=== PATIENT | female | born 2000 | race Caucasian/White ===

== ENCOUNTER 2021-12-23 13:07 | Inpatient (IN) | payer MEDICAID ==
[2021-12-23] MEDS ORDERED: Sodium Chloride 0.9% 1,000 ML IV ONE ×2 (13:34→14:22)
[2021-12-23] MEDS ORDERED: Insulin Regular, Human 100 Units/ML 3 ML Vial IV ONE (13:45)
[2021-12-23] MEDS ORDERED: Metoclopramide 10 MG/2 ML SDV IVPUSH ONE ×2 (13:52→15:55)
[2021-12-23] MEDS ORDERED: Sodium Chloride 0.45% with KCl 1,000 ML IV SCH (15:00)
[2021-12-23] MEDS ORDERED: Morphine 2 MG/ML SYRINGE IVPUSH PRN (15:21)
[2021-12-23] MEDS ORDERED: Ondansetron 8 MG in Sodium Chloride 0.9% 50 ML IV PRN (15:21)
[2021-12-23 15:23] LABS: HEMOGLOBIN A1C 8.5 %
[2021-12-23] MEDS: NS + KCl 20mEq/L 1,000 ML IV SCH ×2 (15:35→21:03)
[2021-12-23] MEDS: Heparin Sodium 5,000 Units/ML Vial SUBCUT SCH (17:00)
[2021-12-23] MEDS ORDERED: Ondansetron 4 MG/2 ML SDV IVPUSH PRN (20:11)
[2021-12-23] MEDS: LORazepam 2 MG/ML SDV IV PRN (22:35)
[2021-12-24] MEDS: NS + KCl 20mEq/L 1,000 ML IV SCH (01:06)
[2021-12-24] MEDS: D5 1/2 NS w/ 20 mEq/L KCl 1,000 ML IV SCH ×3 (02:13→11:42)
[2021-12-24] MEDS: Ondansetron 4 MG/2 ML SDV IVPUSH PRN ×4 (03:06→22:23)
[2021-12-24] MEDS: LORazepam 2 MG/ML SDV IV PRN ×5 (04:09→23:04)
[2021-12-24] MEDS ORDERED: Phosphorus #1 250 MG Tab PO ONE (06:33)
[2021-12-24] MEDS: Heparin Sodium 5,000 Units/ML Vial SUBCUT SCH ×4 (08:04→23:13)
[2021-12-24] MEDS: Insulin Lispro 100 Unit/ML 3 ML KwikPen SUBCUT SCH ×4 (08:59→20:21)
[2021-12-24] MEDS ORDERED: Sodium Chloride 0.9% 1,000 ML IV SCH (09:00)
[2021-12-24] MEDS: Potassium Chloride 10 MEQ in Premix Bag 1 BAG IV SCH ×2 (09:38→10:54)
[2021-12-24] MEDS ORDERED: Sodium Chloride 0.45% 1,000 ML IV SCH (10:45)
[2021-12-24] MEDS: Metoclopramide 5 MG Tab PO PRN (15:22)
[2021-12-24] MEDS: Insulin Glargine,Human Rec. Analog 100 Units/ML 3 ML Pen SUBCUT SCH (20:16)
[2021-12-25] MEDS: Metoclopramide 5 MG Tab PO PRN ×3 (00:54→21:46)
[2021-12-25] MEDS: Ondansetron 4 MG/2 ML SDV IVPUSH PRN ×3 (04:31→20:10)
[2021-12-25] MEDS ORDERED: Sodium Chloride 0.9% 1,000 ML IV ONE (08:10)
[2021-12-25] MEDS: Heparin Sodium 5,000 Units/ML Vial SUBCUT SCH ×2 (08:44→17:08)
[2021-12-25] MEDS: LORazepam 2 MG/ML SDV IV PRN ×2 (08:44→17:29)
[2021-12-25] MEDS: Insulin Lispro 100 Unit/ML 3 ML KwikPen SUBCUT SCH ×4 (08:46→20:19)
[2021-12-25] MEDS: Insulin Glargine,Human Rec. Analog 100 Units/ML 3 ML Pen SUBCUT SCH ×2 (08:48→20:15)
[2021-12-25] MEDS: Sodium Chloride 0.9% 1,000 ML IV SCH ×2 (10:07→20:21)
[2021-12-26] MEDS: Heparin Sodium 5,000 Units/ML Vial SUBCUT SCH ×3 (00:48→16:33)
[2021-12-26] MEDS: LORazepam 2 MG/ML SDV IV PRN (04:59)
[2021-12-26] MEDS: Ondansetron 4 MG/2 ML SDV IVPUSH PRN (05:15)
[2021-12-26] MEDS ORDERED: Scopolamine 1.5 MG Transdermal Patch TOP ONE (07:39)
[2021-12-26] MEDS ORDERED: Sodium Chloride 0.9% 1,000 ML IV SCH (08:30)
[2021-12-26] MEDS ORDERED: Ondansetron 8 MG in Sodium Chloride 0.9% 50 ML IV PRN (08:30)
[2021-12-26] MEDS ORDERED: Potassium Chloride 20 MEQ Tab.ER PO SCH (09:00)
[2021-12-26] MEDS ORDERED: Pantoprazole 40 MG Vial IVPUSH SCH (09:00)
[2021-12-26] MEDS: Insulin Glargine,Human Rec. Analog 100 Units/ML 3 ML Pen SUBCUT SCH (09:38)
[2021-12-26] MEDS: Sodium Chloride 0.9% 1,000 ML IV SCH ×3 (09:42→16:06)
[2021-12-26] MEDS: Potassium Chloride 10 MEQ in Premix Bag 1 BAG IV SCH ×2 (09:44→10:51)
[2021-12-26] MEDS: Insulin Lispro 100 Unit/ML 3 ML KwikPen SUBCUT SCH ×3 (10:04→17:52)
[2021-12-26] MEDS: Metoclopramide 5 MG Tab PO PRN ×2 (12:28→17:55)
[2021-12-26 16:32] VITALS: BP 110/82; PULSE 58
== END 2021-12-26 18:44 | disposition home or self-care (01) | DRG 638 ==
LOC: JD.ED 13:07 → JD.ICU 15:09
PROVIDERS: ADMIT Internal Medicine; ATTEND Pediatrics
DX: E10.10 Type 1 diabetes mellitus with ketoacidosis without coma (principal); E27.1 Primary adrenocortical insufficiency; E10.43 Type 1 diabetes mellitus with diabetic autonomic (poly)neuropathy; E86.0 Dehydration; K31.84 Gastroparesis; E87.6 Hypokalemia; R79.89 Other specified abnormal findings of blood chemistry; E83.42 Hypomagnesemia; E83.39 Other disorders of phosphorus metabolism; F32.A Depression, unspecified; R00.0 Tachycardia, unspecified; R09.02 Hypoxemia; F41.9 Anxiety disorder, unspecified; E03.9 Hypothyroidism, unspecified; Z79.4 Long term (current) use of insulin
CPT/HCPCS: 36415; 36600; 71045; 71045-26; 74018; 74018-26; 80048; 80053; 81003; 82009; 82803; 82947; 83036; 83605; 83735; 84100; 84703; 85025; 86140; 96365; 96375; 96376; 99285-25; A9270-GY; C9113; J1644; J1815; J1815-GY; J2060; J2270; J2405; J2765; J3480; J7030

== ENCOUNTER 2022-04-29 17:06 | Emergency (ER) | payer MEDICAID ==
[2022-04-29 17:38] VITALS: PULSE 129
[2022-04-29] MEDS ORDERED: Metoclopramide 10 MG/2 ML SDV IVPUSH ONE (17:48)
[2022-04-29] MEDS ORDERED: HYDROmorphone 0.5 MG/0.5 ML Syringe IVPUSH ONE (17:48)
[2022-04-29] MEDS ORDERED: Lactated Ringers 1,000 ML IV SCH ×2 (18:00→19:15)
[2022-04-29] MEDS ORDERED: Acetaminophen 325 MG Tab PO ONE (18:06)
[2022-04-29 18:23] LABS: CORONAVIRUS COVID-19 NAA NEGATIVE (NEGATIVE)
[2022-04-29 18:44] LABS: HEMOGLOBIN A1C 7.3 %
[2022-04-29 19:00] LABS: ESTIMATED GFR 93 mL/min (>60)
== END 2022-04-29 22:20 | disposition home or self-care (01) ==
LOC: JD.ED 17:06
DX: A08.4 Viral intestinal infection, unspecified (principal); E86.0 Dehydration; E10.9 Type 1 diabetes mellitus without complications; Z79.4 Long term (current) use of insulin; Z20.822 Contact with and (suspected) exposure to COVID-19
CPT/HCPCS: 0241U; 36415; 36600; 71045; 80053; 82009; 82803; 82947; 83036; 83605; 83735; 83880; 83930; 84703; 85007; 85027; 85610; 86140; 87040; 93005; 96361; 96374; 96375; 99284; A9270; J1170; J2765; J7120

== ENCOUNTER 2022-04-30 17:08 | Emergency (ER) | payer MEDICAID ==
[2022-04-30] MEDS ORDERED: HYDROmorphone 0.5 MG/0.5 ML Syringe IVPUSH ONE (18:15)
[2022-04-30] MEDS ORDERED: Metoclopramide 10 MG/2 ML SDV IVPUSH ONE (18:15)
[2022-04-30] MEDS: Lactated Ringers 1,000 ML IV SCH ×2 (18:44→21:28)
[2022-04-30 20:12] LABS: ESTIMATED GFR 107 mL/min (>60)
[2022-04-30] MEDS ORDERED: Lactated Ringers 1,000 ML IV SCH (20:45)
[2022-04-30] MEDS ORDERED: LORazepam 2 MG/ML SDV IVPUSH ONE (21:14)
[2022-05-01] MEDS ORDERED: Magnesium Sulfate/Water 4 GM in Premix Bag 1 BAG IV ONE (02:19)
[2022-05-01] MEDS ORDERED: Sodium Chloride 0.9% 1,000 ML IV SCH (02:30)
[2022-05-01 02:33] VITALS: BP 105/73; PULSE 90
[2022-05-01] MEDS ORDERED: Ondansetron 4 MG/2 ML SDV IVPUSH ONE (06:46)
[2022-05-01] MEDS ORDERED: Promethazine 25 MG Tab PO ONE (10:06)
== END 2022-05-01 12:50 | disposition home or self-care (01) ==
LOC: JD.ED 17:08
DX: A08.4 Viral intestinal infection, unspecified (principal); E10.10 Type 1 diabetes mellitus with ketoacidosis without coma; R11.2 Nausea with vomiting, unspecified
CPT/HCPCS: 36415; 80053; 81001; 82009; 82947; 83690; 83735; 85025; 86140; 96361; 96365; 96366; 96375; 99284; J1170; J2060; J2405; J2765; J3475; J7030; J7120; J8597